=== PATIENT | female | born 1985 | race Caucasian/White ===

== ENCOUNTER 2017-06-17 10:33 | Emergency (ER) | payer MEDICAID, OTHER ==
[~2017-06-17] VITALS: Ht 154.9 cm; Wt 45.4 kg
[2017-06-17] MEDS ORDERED: SODIUM CHLORIDE 0.9% 1,000 ML IV ONE ×2 (11:06→14:15)
[2017-06-17 11:39] LABS: Eosinophils # (auto) 0 uL; Hemoglobin 11.4 g/dL (12.2-16.2); Monocytes # (auto) 0.8 uL
[2017-06-17 11:40] LABS: Basophils # (auto) 0.1 uL; Basophils % (auto) 0.6 % (0.0-2.0); Eosinophils % (auto) 0.3 % (0.0-7.0); Hematocrit 34.8 % (36.0-46.0); Lymphocytes # (auto) 1.8 uL; Lymphocytes % (auto) 14.8 % (10.0-50.0); Mean Corpuscular Hemoglobin 35.2 pg (28.0-32.0); Mean Corpuscular Hgb Conc. 32.8 g/dL (32.0-36.0); Mean Corpuscular Volume 107.2 fL (80.0-100.0); Monocytes % (auto) 6.2 % (0.0-12.0); Neutrophils # (auto) 9.5 uL; Neutrophils % (auto) 78.1 % (37.0-80.0); Nucleated Red Blood Cells % 0.1 %; Platelet Count (auto) 355 10^3/uL (140-450); Red Blood Cells 3.25 10^6/uL (4.0-5.20); White Blood Cell 12.2 10^3/uL (4.4-10.8)
[2017-06-17 11:57] LABS: INR 0.92 (0.9-1.15); Partial Thromboplastin Time 21.5 sec (22.64-33.71)
[2017-06-17] MEDS ORDERED: ONDANSETRON HCL 4 MG/2 ML VIAL IV ONE (12:00)
[2017-06-17 12:24] LABS: Albumin 3.6 g/dL (3.4-5.0); BUN/Creatinine Ratio 55.9; Calcium 8.7 mg/dL (8.5-10.1); Potassium 4.1 mmol/L (3.5-5.1)
[2017-06-17 12:37] LABS: Bilirubin, Total 0.3 mg/dL (0.2-1.0)
[2017-06-17 12:40] VITALS: BP 93/56
[2017-06-17 13:05] LABS: Urine Bacteria FEW /hpf (None Seen); Urine Blood Negative /uL (Negative); Urine Mucus FEW (None Seen); Urine Specific Gravity 1.026 (1.001-1.035); Urine WBC 1 /hpf (0 - 5)
== END 2017-06-17 14:58 | disposition home or self-care (01) ==
LOC: ER 10:33
DX: K52.9 Noninfective gastroenteritis and colitis, unspecified (principal); E86.0 Dehydration
CPT/HCPCS: 36415; 74176; 80053; 81001; 81025; 85025; 85610; 85730; 93005; 96361; 96374; 99285; J2405; J7030

== ENCOUNTER 2018-04-11 21:27 | Emergency (ER) | payer OTHER ==
[2018-04-11] MEDS ORDERED: ONDANSETRON ODT 4 MG TAB PO ONE (22:45)
[2018-04-11 23:30] LABS: Hemoglobin 14.3 g/dL (12.2-16.2); Mean Corpuscular Hgb Conc. 29.7 g/dL (32.0-36.0); Mean Corpuscular Volume 107.6 fL (80.0-100.0); Platelet Count (auto) 397 10^3/uL (140-450); Red Blood Cells 4.46 10^6/uL (4.0-5.20); Red Cell Distribution Width 14.9 % (11.8-14.3); White Blood Cell 26.4 10^3/uL (4.4-10.8)
[2018-04-11 23:32] LABS: Basophils % (manual) 0 (0.0-2.0); Blast Cells 0; Eosinophils % (manual) 0 (0-7); Metamyelocytes % 0; Myelocytes % 0; Promyelocytes % 0; Reactive Lymphocytes 0
[2018-04-11 23:47] LABS: Albumin 4.3 g/dL (3.4-5.0); BUN/Creatinine Ratio 10.8; Calcium 7.6 mg/dL (8.5-10.1)
[2018-04-11 23:50] LABS: Bilirubin, Total 0.5 mg/dL (0.2-1.0); Total Protein 9.1 g/dL (6.4-8.2)
[2018-04-11 23:55] LABS: Potassium 5.6 mmol/L (3.5-5.1)
[2018-04-12 00:49] LABS: Band Neutrophils % (manual) 5
[2018-04-12 00:50] LABS: Lymphocytes % (manual) 1 (10.0-50.0); Monocytes % (manual) 3 (0-12)
[2018-04-12 07:00] VITALS: BP 104/75
== END 2018-04-12 00:03 | disposition left against medical advice (07) ==
LOC: ER 21:27
DX: R11.2 Nausea with vomiting, unspecified (principal); Z53.21 Procedure and treatment not carried out due to patient leaving prior to being seen by health care provider
CPT/HCPCS: 36415; 80053; 85007; 85027; 99281; Q0162

== ENCOUNTER 2018-04-12 13:14 | Inpatient (IN) | payer OTHER ==
[~2018-04-12] VITALS: Ht 154.9 cm; Wt 47.3 kg
[2018-04-12 13:53] LABS: Basophils # (auto) 0.1 uL; Eosinophils # (auto) 0 uL; Hemoglobin 13.3 g/dL (12.2-16.2); Lymphocytes # (auto) 0.3 uL; Lymphocytes % (auto) 1.9 % (10.0-50.0); Mean Corpuscular Hemoglobin 32.2 pg (28.0-32.0); Mean Corpuscular Hgb Conc. 31.7 g/dL (32.0-36.0); Mean Corpuscular Volume 101.5 fL (80.0-100.0); Monocytes # (auto) 0.8 uL; Monocytes % (auto) 5.5 % (0.0-12.0); Neutrophils # (auto) 12.9 uL; Neutrophils % (auto) 91.6 % (37.0-80.0); Nucleated Red Blood Cells % 0.1 %; Platelet Count (auto) 280 10^3/uL (140-450); Red Blood Cells 4.14 10^6/uL (4.0-5.20); Red Cell Distribution Width 14.6 % (11.8-14.3)
[2018-04-12 14:21] LABS: Albumin 3.9 g/dL (3.4-5.0); BUN/Creatinine Ratio 13.8; Calcium 7.9 mg/dL (8.5-10.1)
[2018-04-12 14:24] LABS: Bilirubin, Total 0.5 mg/dL (0.2-1.0); Total Protein 8.5 g/dL (6.4-8.2)
[2018-04-12 14:33] LABS: Potassium 5.6 mmol/L (3.5-5.1)
[2018-04-12] MEDS ORDERED: SODIUM CHLORIDE 0.9% 1,000 ML IV ONE ×2 (15:23→19:45)
[2018-04-12 16:03] LABS: Urine Bacteria NONE SEEN /hpf (None Seen); Urine Blood 1+ /uL (Negative); Urine Hyaline Cast MOD /lpf (0 - 2); Urine Mucus FEW (None Seen); Urine Specific Gravity 1.017 (1.001-1.035); Urine WBC 5 /hpf (0 - 5)
[2018-04-12 16:36] LABS: Alcohol, Urine < 3.0 mg/dL (0-5); Amphetamine Screen, Urine NEGATIVE (NEGATIVE); Barbiturate Scree,Urine NEGATIVE (NEGATIVE); Benzodiazephine Screen, Urine NEGATIVE (NEGATIVE); Cannabinoid Screen, Urine NEGATIVE (NEGATIVE); Cocaine Screen, Urine NEGATIVE (NEGATIVE); Opiate Scree,Urine NEGATIVE (NEGATIVE); Phencyclidine Screen, Urine NEGATIVE (NEGATIVE)
[2018-04-12] MEDS ORDERED: ONDANSETRON HCL 4 MG/2 ML VIAL IV ONE ×2 (18:15→19:45)
[2018-04-12] MEDS ORDERED: cefTRIAXone 1GM/50ML D5W 50 ML IV ONE (18:30)
[2018-04-12] MEDS ORDERED: CLINDAMYCIN 600MG IV 50 ML IV ONE (19:45)
[2018-04-12] MEDS ORDERED: FAMOTIDINE (10MG/ML) 2ML VL IV ONE (19:45)
[2018-04-12] MEDS ORDERED: ACETAMINOPHEN 650 mg PER 20 mL UD PO ONE (20:00)
[2018-04-12] MEDS ORDERED: ACETAMINOPHEN 325 MG TAB PO ONE (20:00)
[2018-04-12 22:08] LABS: Potassium 4.4 mmol/L (3.5-5.1)
[2018-04-12 22:10] LABS: BUN/Creatinine Ratio 17.7
[2018-04-13] MEDS ORDERED: NITROGLYCERIN 0.4 MG SL TAB SL PRN (01:00)
[2018-04-13] MEDS ORDERED: CALCIUM GLUC 4.65meq/50ml D5AE 50 ML IV ONE (01:00)
[2018-04-13] MEDS ORDERED: ACETAMINOPHEN 325 MG TAB PO PRN (01:00)
[2018-04-13] MEDS ORDERED: ONDANSETRON HCL 4 MG/2 ML VIAL IV PRN (01:00)
[2018-04-13] MEDS ORDERED: MORPHINE SULFATE 4 MG/ML SYR/VIAL IV PRN (01:00)
[2018-04-13] MEDS ORDERED: HYDROcodone-ACET 5/325MG TAB PO PRN (01:00)
[2018-04-13] MEDS ORDERED: PANTOPRAZOLE 40 MG/10 ML VIAL IV ONE ×2 (02:06→02:30)
[2018-04-13] MEDS ORDERED: PANTOPRAZOLE 40 MG/10 ML VIAL IV SCH (02:30)
[2018-04-13] MEDS ORDERED: ACETAMINOPHEN 650 mg PER 20 mL UD ONE (02:59)
[2018-04-13] MEDS ORDERED: ACETAMINOPHEN 650 mg PER 20 mL UD GT PRN (03:00)
[2018-04-13] MEDS: TEMAZEPAM 15 MG CAP PO PRN ×2 (03:02→20:26)
[2018-04-13] MEDS: ACETAMINOPHEN 650 mg PER 20 mL UD PO PRN ×2 (03:05→17:30)
[2018-04-13] MEDS: SOD CHL 0.45% 1,000 ML IV SCH ×2 (03:44→19:09)
[2018-04-13 08:15] VITALS: BP 121/86
[2018-04-13 09:00] VITALS: BP 121/86
[2018-04-13 09:46] LABS: BUN/Creatinine Ratio 19.3; Calcium 8.1 mg/dL (8.5-10.1); Potassium 3.3 mmol/L (3.5-5.1)
[2018-04-13] MEDS ORDERED: AZITHROMYCIN 500MG/ 250ML 250 ML IV SCH (10:00)
[2018-04-13] MEDS: PANTOPRAZOLE 40 MG/10 ML VIAL IV SCH (10:03)
[2018-04-13] MEDS ORDERED: cefTRIAXone 1GM/50ML D5W 50 ML IV ONE (12:45)
[2018-04-13 17:00] VITALS: BP 118/82
[2018-04-13 22:00] VITALS: BP 115/84
[2018-04-14] MEDS: ACETAMINOPHEN 650 mg PER 20 mL UD PO PRN ×3 (00:33→20:51)
[2018-04-14] MEDS: SOD CHL 0.45% 1,000 ML IV SCH (02:00)
[2018-04-14 05:23] VITALS: BP 105/74
[2018-04-14 07:09] LABS: Basophils # (auto) 0 uL; Basophils % (auto) 0.7 % (0.0-2.0); Eosinophils # (auto) 0.1 uL; Eosinophils % (auto) 1.6 % (0.0-7.0); Hematocrit 29.7 % (36.0-46.0); Hemoglobin 9.9 g/dL (12.2-16.2); Lymphocytes # (auto) 1.3 uL; Lymphocytes % (auto) 26.7 % (10.0-50.0); Mean Corpuscular Hemoglobin 32.5 pg (28.0-32.0); Mean Corpuscular Hgb Conc. 33.2 g/dL (32.0-36.0); Mean Corpuscular Volume 97.8 fL (80.0-100.0); Monocytes # (auto) 0.3 uL; Monocytes % (auto) 5.9 % (0.0-12.0); Neutrophils # (auto) 3.2 uL; Neutrophils % (auto) 65.1 % (37.0-80.0); Platelet Count (auto) 171 10^3/uL (140-450); Red Blood Cells 3.04 10^6/uL (4.0-5.20); Red Cell Distribution Width 13.7 % (11.8-14.3); White Blood Cell 4.9 10^3/uL (4.4-10.8)
[2018-04-14 07:30] LABS: BUN/Creatinine Ratio 15.4; Bilirubin, Total 0.4 mg/dL (0.2-1.0); Total Protein 6.2 g/dL (6.4-8.2)
[2018-04-14 07:34] LABS: INR 0.91 (0.9-1.15); Partial Thromboplastin Time 21.2 sec (23.78-33.04); Prothrombin Time 9.8 sec (9.27-12.13)
[2018-04-14 07:37] LABS: Potassium 2.7 mmol/L (3.5-5.1)
[2018-04-14 08:16] VITALS: BP 92/70
[2018-04-14] MEDS: D5W/SOD CHL 0.45%/KCL 40MEQ 1,000 ML IV SCH ×3 (08:30→19:49)
[2018-04-14] MEDS ORDERED: POTASSIUM CHL 20MEQ/100ML 100 ML IV SCH (08:30)
[2018-04-14 08:49] LABS: % Iron Saturation 75.6 % (15-50)
[2018-04-14] MEDS: cefTRIAXone 1GM/50ML D5W 50 ML IV SCH (09:02)
[2018-04-14] MEDS: PANTOPRAZOLE 40 MG/10 ML VIAL IV SCH (09:14)
[2018-04-14] MEDS ORDERED: LIDOCAINE VISCOUS 2% 15ML UD MT PRN (10:30)
[2018-04-14] MEDS ORDERED: POTASSIUM EFFERVESENT TAB 25 MEQ PO ONE (10:45)
[2018-04-14] MEDS: POTASSIUM CHL 20MEQ/100ML 100 ML IV SCH ×2 (12:02→15:53)
[2018-04-14 12:12] VITALS: BP 109/79
[2018-04-14 16:42] VITALS: BP 115/70
[2018-04-14 16:50] LABS: BUN/Creatinine Ratio 12.3; Calcium 7.9 mg/dL (8.5-10.1); Potassium 3.3 mmol/L (3.5-5.1)
[2018-04-14] MEDS: TEMAZEPAM 15 MG CAP PO PRN (20:51)
[2018-04-14 22:00] VITALS: BP 99/64
[2018-04-15] MEDS: D5W/SOD CHL 0.45%/KCL 40MEQ 1,000 ML IV SCH (04:30)
[2018-04-15 05:00] VITALS: BP 103/71
[2018-04-15 05:27] LABS: Basophils # (auto) 0 uL; Basophils % (auto) 0.5 % (0.0-2.0); Eosinophils # (auto) 0.1 uL; Eosinophils % (auto) 1.8 % (0.0-7.0); Hemoglobin 10.8 g/dL (12.2-16.2); Lymphocytes % (auto) 29.3 % (10.0-50.0); Mean Corpuscular Hgb Conc. 32.6 g/dL (32.0-36.0); Mean Corpuscular Volume 98.3 fL (80.0-100.0); Monocytes # (auto) 0.1 uL; Monocytes % (auto) 3.8 % (0.0-12.0); Neutrophils # (auto) 2.2 uL; Neutrophils % (auto) 64.6 % (37.0-80.0); Platelet Count (auto) 170 10^3/uL (140-450); Red Blood Cells 3.36 10^6/uL (4.0-5.20); Red Cell Distribution Width 13.9 % (11.8-14.3); White Blood Cell 3.4 10^3/uL (4.4-10.8)
[2018-04-15 05:47] LABS: Calcium 8.4 mg/dL (8.5-10.1); Potassium 3.5 mmol/L (3.5-5.1)
[2018-04-15 05:50] LABS: Bilirubin, Total 0.2 mg/dL (0.2-1.0); Total Protein 6.4 g/dL (6.4-8.2)
[2018-04-15] MEDS: cefTRIAXone 1GM/50ML D5W 50 ML IV SCH (09:00)
[2018-04-15 09:01] VITALS: BP 119/71
[2018-04-15 09:21] VITALS: BP 119/71
[2018-04-15 09:55] VITALS: BP 119/71
[2018-04-15] MEDS: PANTOPRAZOLE 40 MG/10 ML VIAL IV SCH (10:00)
== END 2018-04-15 11:03 | disposition home or self-care (01) | DRG 638 ==
LOC: ER 13:14 → TELE 04-13 01:13 → TELE-CENTR 04-13 08:08
PROVIDERS: ADMIT Nurse Practitioner; ATTEND Family Medicine
DX: E11.10 Type 2 diabetes mellitus with ketoacidosis without coma (principal); N39.0 Urinary tract infection, site not specified; N17.9 Acute kidney failure, unspecified; E87.0 Hyperosmolality and hypernatremia; A08.4 Viral intestinal infection, unspecified; J02.0 Streptococcal pharyngitis; D64.9 Anemia, unspecified; E11.21 Type 2 diabetes mellitus with diabetic nephropathy; E87.5 Hyperkalemia; E86.0 Dehydration; E87.6 Hypokalemia; E83.51 Hypocalcemia; F17.200 Nicotine dependence, unspecified, uncomplicated; F12.90 Cannabis use, unspecified, uncomplicated
CPT/HCPCS: 36415; 36600; 71046; 74176; 76705; 76775; 80048; 80053; 80307; 81001; 82150; 82805; 83036; 83540; 83550; 83605; 83690; 83735; 84443; 84702; 85025; 85610; 85730; 86850; 86900; 86901; 87040; 87070; 87077; 87186; 87205; 87880; 96365; 96366; 96367; 96375; 96376; C9113; G0378; J0610; J0696; J2405; J3480; J3490